=== PATIENT | male | born 1960 | race American Indian/Alaskan Native ===

== ENCOUNTER 2020-01-17 12:22 | Emergency (ER) | payer OTHER ==
[2020-01-17] MEDS ORDERED: ACETAMINOPHEN 325 MG TAB PO ONE (12:32)
--- NOTE | 2020-01-17 12:33 | Event Note ---
ED Screening Note Date of service: 01/17/20 Time: 12:32 ED Screening Note: Patient complains of shortness of breath and continued cough after being diagnosed with Covid 11 days ago Fever 102.6 No tachycardia noted This initial assessment/diagnostic orders/clinical plan/treatment(s) is/are subj ect to change based on patients health status, clinical progression and re- assessment by fellow clinical providers in the ED. Further treatment and workup at subsequent clinical providers discretion. Patient/guardian urged not to elope from the ED as their condition may be serious if not clinically assessed and managed. Initial orders include: Chest x-ray Labs Tylenol
--- NOTE | 2020-01-17 14:23 | XRay Report ---
CHEST 1 VIEW 01/17/2020 2:14 PM INDICATION / CLINICAL INFORMATION: +covid, SOB. COMPARISON: None available. FINDINGS: SUPPORT DEVICES: None. HEART / MEDIASTINUM: No significant abnormality. LUNGS / PLEURA: There are patchy parenchymal opacities in the right mid to lower lung. No pneumothora x. ADDITIONAL FINDINGS: No significant additional findings. IMPRESSION: 1. Patchy right mid and lower lung parenchymal opacities that could indicate viral pneumonia given th e provided history. Signer Name: Billy Ventura MD Signed: 01/17/2020 2:19 PM Workstation Name: [id number]
[2020-01-17 15:02] LABS: Hematocrit 40.1 % (35.5-45.6); Hemoglobin 13.6 gm/dl (11.8-15.2); Mean Corpuscular HGB Conc 34 % (32-34); Mean Corpuscular Volume 92 fl (84-94); Platelet Count 285 K/mm3 (140-440); Red Blood Count 4.34 M/mm3 (3.65-5.03); Red Cell Distribution Width 12.6 % (13.2-15.2)
[2020-01-17] MEDS ORDERED: methylPREDNISolone Sod Succinate 125 MG/2 ML INJ IM ONE (15:13)
[2020-01-17] MEDS ORDERED: IPRATROPIUM/ALBUTEROL SULFATE 3 ML AMPUL.NEB IH ONE (15:13)
--- NOTE | 2020-01-17 15:15 | Emergency Department Report ---
ED Shortness of Breath HPI - General Chief Complaint: Fever Stated Complaint: COVID SYMPTOMS Time Seen by Provider: 01/17/20 12:29 Source: patient Mode of arrival: Ambulatory Limitations: No Limitations - History of Present Illness Initial Comments: 59 year old male presents to the ER today complaining of cough shortness of breath and positive COVID-19. Patient states that about 2 weeks ago he started with cough and shortness of breath. He states that he did outpatient COVID-19 test and found that on the that he was positive. Patient states that his coughing has improved since his diagnosis, but he still remains very short of breath especially when he lays down and walks. He states that he started having fever around January 05 off and on. Highest measured temperature was 102 including this morning at home. He reports generalized weakness mainly when he tries to stand up and walk. He denies any URI symptoms including sore throat. He denies any chest pain, wheezing or GI symptoms. He denies any past history of coronary artery disease, lung disease, tobacco use, diabetes, hypertension or any significant past medical history. MD Complaint: shortness of breath, cough -: week(s) (2) - Related Data Previous Rx's Medication Instructions Recorded Last Taken Type Albuterol Mdi (or & Nicu Only) 2 puff IH QID PRN #8.5 gram 01/17/20 Unknown Rx [ProAir HFA Inhaler] Azithromycin [Zithromax Z-LANCE] 250 mg PO DAILY #5 tab 01/17/20 Unknown Rx predniSONE [Deltasone] 50 mg PO QDAY #5 tab 01/17/20 Unknown Rx Allergies Allergy/AdvReac Type Severity Reaction Status Date / Time No Known Allergies Allergy Unverified 01/17/20 12:31 ED Review of Systems ROS: Stated complaint: COVID SYMPTOMS Other details as noted in HPI Comment: All other systems reviewed and negative Constitutional: fever ENT: denies: ear pain, throat pain Respiratory: cough, shortness of breath, SOB with exertion, SOB at rest. denies: wheezing Cardiovascular: dyspnea on exertion. denies: chest pain, palpitations, orthopnea, edema, syncope, paroxysmal nocturnal dyspnea Gastrointestinal: denies: abdominal pain, nausea, diarrhea Genitourinary: denies: urgency, dysuria Musculoskeletal: denies: back pain, joint swelling, arthralgia Neurological: weakness (Generalized) Psychiatric: denies: anxiety, depression ED Past Medical Hx - Past Medical History Previous Medical History?: Yes - Surgical History Past Surgical History?: No - Social History Smoking Status: Never Smoker Substance Use Type: None - Medications Home Medications: Home Medications Medication Instructions Recorded Confirmed Last Taken Type Albuterol Mdi (or & Nicu Only) 2 puff IH QID PRN #8.5 gram 01/17/20 Unknown Rx [ProAir HFA Inhaler] Azithromycin [Zithromax Z-LANCE] 250 mg PO DAILY #5 tab 01/17/20 Unknown Rx predniSONE [Deltasone] 50 mg PO QDAY #5 tab 01/17/20 Unknown Rx ED Physical Exam - General Limitations: No Limitations General appearance: alert, in no apparent distress - Head Head exam: Present: atraumatic, normocephalic, normal inspection - Eye Eye exam: Present: normal appearance, PERRL, EOMI Pupils: Present: normal accommodation - ENT ENT exam: Present: normal exam, normal orophraynx, mucous membranes moist - Neck Neck exam: Present: normal inspection, full ROM. Absent: meningismus - Respiratory Respiratory exam: Present: rhonchi (right basw), decreased breath sounds - Cardiovascular Cardiovascular Exam: Present: regular rate, normal rhythm, normal heart sounds - GI/Abdominal GI/Abdominal exam: Present: soft. Absent: distended, tenderness - Extremities Exam Extremities exam: Present: normal inspection, full ROM. Absent: pedal edema - Neurological Exam Neurological exam: Present: alert, oriented X3, CN II-XII intact, normal gait - Psychiatric Psychiatric exam: Present: normal affect, normal mood - Skin Skin exam: Present: intact ED Course Vital Signs 01/17/20 01/17/20 01/17/20 12:31 13:35 14:25 Temperature 102.6 F H 99.8 F H Pulse Rate 87 Pulse Rate [ Bilateral] Respiratory 20 18 Rate Respiratory Rate [Bilateral ] Blood Pressure 145/85 O2 Sat by Pulse 97 Oximetry 01/17/20 15:58 Temperature Pulse Rate Pulse Rate [ 61 Bilateral] Respiratory Rate Respiratory 96 H Rate [Bilateral ] Blood Pressure O2 Sat by Pulse Oximetry ED Medical Decision Making - Lab Data Result diagrams: 01/17/20 14:30 01/17/20 14:30 - EKG Data EKG shows normal: sinus rhythm Rate: normal (70) - EKG Data Interpretation: no acute changes - Radiology Data Radiology results: report reviewed - Medical Decision Making 59 yr old male presents to ED c/o SOB/cough. He reports being positive COVID 19 which he found out about on 01/05. Labs reviewed -- wbc/cmp wnl. His chest xray did show right mid -lower lobe opacities consistent with viral pneumonia. Pt was febrile on arrival but this has improved with antipyetic. His resting O2, RR and HR withing nl. He reported feeling better after neb treatment. Overall pt is well appearing, not toxic and no acute resp distress. Patient was ambulated, his pulse Ox did drop to 93% and felt a little dizzy while ambulating but he states he did not feel SOB. I did offer patient admission but he stated he rather go home. Discussed case with Dr Marshall, since Dr Bryant had already left for the day. She is ok with patient being discharged home with necessary medications. Discussed tx plan with patient, also discussed worsening s/s with patient and that he should return immediately if his symptoms gets worse. Critical care attestation.: If time is entered above; I have spent that time in minutes in the direct care of this critically ill patient, excluding procedure time. ED Disposition Clinical Impression: Pneumonia, COVID-19 Disposition: DC-01 TO HOME OR SELFCARE Is pt being admited?: No Does the pt Need Aspirin: No Condition: Stable Instructions: Bacterial Pneumonia (ED), COVID-19, Community-Acquired Pneumonia, Adult, [id number] Additional Instructions: Take antibiotics, prednisone, and albuterol MDI as prescribed. I recommend that you follow up closely with PCP. Return to ED if your symptoms worsens or changes in any way. Prescriptions: predniSONE [Deltasone] 50 mg PO QDAY #5 tab Albuterol Mdi (or & Nicu Only) [ProAir HFA Inhaler] 2 puff IH QID PRN #8.5 gram PRN Reason: Shortness Of Breath Azithromycin [Zithromax Z-ALNCE] 250 mg PO DAILY #5 tab Referrals: LAVON WILLINGHAM MD [Primary Care Provider] - 3-5 Days Forms: Work/School Release Form(ED) Time of Disposition: 17:14
[2020-01-17 15:21] LABS: Alanine Aminotransferase 34 units/L (7-56); Albumin 3.5 g/dL (3.9-5); BUN/Creatinine Ratio 15; Blood Urea Nitrogen 16 mg/dL (9-20); Calcium 8.7 mg/dL (8.4-10.2); Hemolysis Index 4
[2020-01-17 16:11] LABS: Basophils % (Manual) 0 % (0.0-1.8); Eosinophils % (Manual) 0 % (0.0-4.3); RBC Morphology Normal; Total Cells Counted 100
[2020-01-17 18:08] VITALS: BP 145/70
== END 2020-01-17 18:06 | disposition home or self-care (01) ==
LOC: ED 12:22
DX: U07.1 COVID-19 (principal); J18.9 Pneumonia, unspecified organism; Z79.899 Other long term (current) drug therapy
CPT/HCPCS: 36415; 71045; 80053; 84484; 85007; 85025; 93005; 94640; 96372; 99284; J2930; 94644